=== PATIENT | male | born 1980 | race Caucasian/White ===

== ENCOUNTER 2019-02-06 11:35 | Emergency (ER) | payer OTHER ==
[~2019-02-06] VITALS: Ht 177.8 cm; Wt 112.3 kg
[~2019-02-06 11:35] MED LIST: ALBU8.5H8 INH; INDO25CA16 PO
[2019-02-06 11:40] VITALS: BP 138/63; PULSE 56; RESP 20; Ht 177.8 cm; Wt 112.3 kg
[2019-02-06] MEDS ORDERED: OSEL75CA23 PO (12:45)
[2019-02-06] MEDS ORDERED: PRED20TA PO (12:45)
--- NOTE | 2019-02-06 12:48 | ERD ---
ER Documentation Chief Complaint Chief Complaint Complains of a sore throat x 3 days HPI 38-year-old male is here presenting complaining of fever sore throat and body aches that began yesterday. Also mild cough. Feels chills. Took ibuprofen early this morning. No vomiting. Tolerating oral intake. ROS All systems reviewed and are negative except as per history of present illness. Medications Home Meds Active Scripts Prednisone* (Prednisone*) 20 Mg Tab, 60 MG PO DAILY for 4 Days, TAB Prov:REGINA NAQVI PA-C 02/06/19 Oseltamivir Phosphate* (Tamiflu*) 75 Mg Capsule, 75 MG PO BID for 5 Days, CAP Prov:REGINA NAQVI PA-C 02/06/19 Albuterol Sulfate* (Proair HFA*) 8.5 Gm Hfa.aer.ad, 2 PUFF INH Q4, #1 INHALER Prov:SHELLEY BANGURA PA-C 07/25/16 Indomethacin* (Indocin*) 25 Mg Capsule, 25 MG PO Q8 for 10 Days, CAP Prov:SHELLEY BANGURA PA-C 07/25/16 Allergies Allergies: Coded Allergies: No Known Allergy (Unverified , 07/25/16) PMhx/Soc History of Surgery: No Anesthesia Reaction: No Hx Neurological Disorder: No Hx Respiratory Disorders: No Hx Cardiac Disorders: No Hx Psychiatric Problems: No Hx Miscellaneous Medical Probl: No Hx Alcohol Use: No Hx Substance Use: No Hx Tobacco Use: No FmHx Family History: No diabetes Physical Exam Vitals Vital Signs Date Temp Pulse Resp B/P (MAP) Pulse Ox O2 O2 Flow FiO2 Time Delivery Rate 02/06/19 99.7 56 20 138/63 96 11:40 (88) Physical Exam INITIAL VITAL SIGNS: Reviewed by me GENERAL: Awake, alert and oriented x 4, well appearing, nontoxic, speaking in full sentences. No acute distress HEAD: Atraumatic NECK: Supple. No masses. Full range of motion. No meningismus. No midline tenderness. EYES: EOMI. PERRL. THROAT: Mild tonsillar erythema and edema, no exudates, uvula is midline, no kissing tonsils RESPIRATORY: Clear to auscultation bilaterally. Symmetric chest wall rise. No wheezing or rales. No accessory muscle use. CV: Regular rate and rhythm. No murmurs, rubs, or gallops. Procedures/MDM Patient presents with flulike symptoms that began yesterday. He is still within the therapeutic window for Tamiflu so he is given a prescription for this as well as prednisone. Also has sore throat but it looks more viral and is less likely strep. Patient counseled regarding my diagnostic impression and care plan. Prior to discharge all questions answered. Pt agrees with treatment plan and understands strict return precautions. Pt is instructed to follow up with primary care provider within 24-48 hours. Precautionary instructions provided including instructions to return to the ER if not improving or for any worsening or changing symptoms or concerns. Departure Diagnosis: Primary Impression: Flu-like symptoms Condition: Stable Patient Instructions: Influenza (Adult) Additional Instructions: Llame al doctor MAANA y danilo tia DAHIANA PARA DENTRO DE 1-2 PUGA.Dgale a la secretaria que nosotros le instruimos hacer esta dahiana.Avise o llame si hebert condicin se empeora antes de la dahiana. Regresa aqui si peor o no mejor. REGINA NAQVI PA-C Feb 06, 2019 12:48
== END 2019-02-06 13:45 | disposition home or self-care (01) ==
LOC: FTE 11:35
DX: J02.9 Acute pharyngitis, unspecified (principal)
CPT/HCPCS: 99283